=== PATIENT | female | born 1990 | race Caucasian/White ===

== ENCOUNTER 2023-05-11 11:00 | Emergency (ER) | payer BC ==
[~2023-05-11] VITALS: Ht 165.1 cm; Wt 54.5 kg
[2023-05-11 12:11] LABS: BASO # 0.02 K/mm3 (0.02-0.10); HEMATOCRIT 42.2 % (37.0-47.0); HEMOGLOBIN 14.5 g/dL (12.5-16.0); LYMPH# 0.96 K/mm3 (1.50-4.00); MEAN CELL VOLUME 92 fl (78-100); MEAN CORPUSCULAR HEMOGLOBIN 32 pg (27-31); MEAN CORPUSCULAR HGB CONC 34 g/dL (33-37); MEAN PLATELET VOLUME 11.1 fl (7.4-10.4); MONO # 0.41 K/mm3 (0.20-0.80); NEU # 6.28 K/mm3 (1.40-6.50); PLATELET COUNT 201 K/mm3 (130-400); RED BLOOD COUNT 4.61 M/mm3 (4.10-5.30); RED CELL DISTRIBUTION WIDTH 12.1 % (11.5-14.5); WHITE BLOOD COUNT 7.7 K/mm3 (4.8-10.8)
[2023-05-11 12:21] LABS: PH-URINE 6.5 (5.0 - 8.0); URINE APPEARANCE CLEAR (CLEAR); URINE BILIRUBIN NEGATIVE (NEGATIVE); URINE COLOR YELLOW (YELLOW); URINE GLUCOSE NEGATIVE (NEGATIVE); URINE KETONE NEGATIVE (NEGATIVE); URINE PROTEIN(semi-quant) NEGATIVE (NEGATIVE)
[2023-05-11 12:22] LABS: URINE BLOOD NEGATIVE (NEGATIVE); URINE LEUKOCYTE ESTERASE NEGATIVE (NEGATIVE); URINE NITRATE NEGATIVE (NEGATIVE)
[2023-05-11 12:24] LABS: URINE MUCUS PRESENT (NOT PRESENT)
[2023-05-11 12:32] LABS: ALBUMIN 4.7 g/dL (3.5-5.0)
[2023-05-11 12:33] LABS: SODIUM 143 mmol/L (136-145)
[2023-05-11 12:34] LABS: CALCIUM 9.9 mg/dL (8.3-10.5)
[2023-05-11 12:35] LABS: GLUCOSE 101 mg/dL (65-105); TOTAL PROTEIN 7.1 g/dL (6.4-8.3)
[2023-05-11 12:36] LABS: CARBON DIOXIDE 26 mmol/L (22-29)
[2023-05-11 12:37] LABS: TOTAL BILIRUBIN 0.8 mg/dL (0.2-1.2)
[2023-05-11 12:40] LABS: AST-SGOT 16 U/L (5-34)
[2023-05-11 12:41] LABS: ALT/SGPT 13 U/L (0-55)
[2023-05-11 12:46] LABS: D-DIMER 0.1 mg/L FEU (0.15-0.50)
[2023-05-11 12:51] LABS: TROPONIN-I < 0.030 ng/mL (0.00-0.033)
[2023-05-11] MEDS ORDERED: XANAX0.5 M1 PO (13:17)
[2023-05-11 13:30] VITALS: BP 113/85
== END 2023-05-11 13:30 | disposition home or self-care (01) ==
LOC: ED 11:00
PROVIDERS: Physician Assistant
DX: F41.9 Anxiety disorder, unspecified (principal)